=== PATIENT | female | born 1965 | race Caucasian/White ===

== ENCOUNTER 2018-11-24 07:51 | Emergency (ER) | payer BC ==
[2018-11-24 08:44] LABS: ABS Basophils 0.1 10^3/ul (0-0.2); ABS Eosinophils 0.1 10^3/ul (0-0.6); ABS Lymphocytes 1.9 10^3/ul (1.0-4.8); ABS Monocytes 0.6 10^3/ul (0-0.8); Eosinophil % 1.1 %; Hematocrit 39 % (35-47); Hemoglobin 13.6 g/dL (12.0-16.0); Lymphocyte % 19.7 %; Mean Corpuscular HGB Conc 35 g/dL (31-36); Mean Corpuscular Hemoglobin 31 pg (27-31); Mean Corpuscular Volume 90 fL (80-97); Mean Platelet Volume 7.6 fL (7.4-10.4); Nucleated Red Blood Cells % 0.1; Platelet Count 333 10^3/uL (150-450); Red Blood Count 4.37 10^6 /uL (3.70-4.87); Red Cell Distribution Width 13 % (10-15); White Blood Count 9.7 10^3/uL (3.5-10.8)
[2018-11-24] MEDS ORDERED: NS 0.9% 1000 ML** 1,000 ML IV SCH (08:45)
--- NOTE | 2018-11-24 08:53 | ED ---
Abdominal Pain/Female - HPI Summary HPI Summary: The patient is a 53 y/o F presenting to [facility] with a chief complaint of sudden onset RUQ pain that radiates into the right flank and back starting last night and persisting through now. She reports that she had spicy food last night, so she took Omeprazole that she is prescribed for dx of GERD; she states that her reflux symptoms are usually well-managed, but the pain was not alleviated throughout the night as she felt uncomfortable and had difficulty sleeping secondary to the pain. Upon waking up this morning, the pain was still present, but she tried to be active to see if the pain would decrease. She also reports that she had a normal BM this morning without diarrhea without relief of the pain. The sharp and constant pain is still currently rated 8/10 in severity. She denies nausea, vomiting, and right shoulder pain. She has no previous experience with this pain. Surgical hx of appendectomy, hysterectomy, four sections. No cholecystectomy. Nonsmoker, rare EtOH, no substance use. - History of Current Complaint Chief Complaint: EDAbdPain Stated Complaint: UPPER GASTRIC PAIN PER PT Time Seen by Provider: 11/24/18 08:25 Hx Obtained From: Patient Onset/Duration: Sudden Onset, Lasting Hours - since last night, Still Present Severity Initially: Moderate Severity Currently: Moderate Pain Intensity: 8 Pain Scale Used: 0-10 Numeric Location: Discrete At: RUQ Radiates: Yes Radiates to: Back - right, Flank - right Character: Sharp Aggravating Factor(s): Food - spicy food Alleviating Factor(s): Nothing - Omeprazole and BM to no relief Associated Signs and Symptoms: Positive: Other: - NEGATIVE: right shoulder pain. Negative: Nausea, Vomiting Allergies/Adverse Reactions: Allergies Allergy/AdvReac Type Severity Reaction Status Date / Time No Known Allergies Allergy Verified 11/24/18 07:57 PMH/Surg Hx/FS Hx/Imm Hx Endocrine/Hematology History: Denies: Hx Diabetes Cardiovascular History: Denies: Hx Hypertension, Hx Pacemaker/ICD GI History: Reports: Hx Gastroesophageal Reflux Disease History: Denies: Hx Dialysis, Hx Renal Disease Musculoskeletal History: Reports: Hx Back Problems - Neck and lower spine pain, Other Musculoskeletal History - Neck and lower spine pain Sensory History: Denies: Hx Contacts or Glasses, Hx Hearing Aid Opthamlomology History: Denies: Hx Contacts or Glasses Psychiatric History: Denies: Hx Panic Disorder - Cancer History Hx Chemotherapy: No Hx Radiation Therapy: No - Surgical History Surgery Procedure, Year, and Place: 4 . [address] Weir in [place]. Appendectomy Hx Anesthesia Reactions: No Infectious Disease History: No Infectious Disease History: Denies: Traveled Outside the [place] in Last 30 Days - Family History Known Family History: Negative: Hypertension, Diabetes - Social History Alcohol Use: Rare Alcohol Amount: Every two months Hx Substance Use: No Substance Use Type: Reports: None Hx Tobacco Use: No Smoking Status (MU): Never Smoked Tobacco Do You Chew or Dip Tobacco: No Have You Chewed or Dipped Tobacco in the LAST YEAR: No Have You Smoked in the Last Year: No Review of Systems Positive: Abdominal Pain - RUQ pain radiating to right flank and back. Negative : Vomiting, Diarrhea - nml BM this morning, Nausea Positive: Other - NEGATIVE: shoulder pain All Other Systems Reviewed And Are Negative: Yes Physical Exam - Summary Physical Exam Summary: VITAL SIGNS: Reviewed. GENERAL: Patient is a well-developed and nourished female who is lying comfortable in the stretcher. Patient is not in any acute respiratory distress. HEAD AND FACE: Normocephalic and atraumatic. EYES: PERRLA, EOMI x 2, No injected conjunctiva. EARS: Hearing grossly intact. Ear canals and tympanic membranes are WNL. MOUTH: Oropharynx within normal limits. NECK: Supple, trachea is midline, no adenopathy, no JVD. CHEST: Symmetric, no tenderness at palpation LUNGS: Clear to auscultation bilaterally. No wheezing or crackles. CVS: RRR, S1 and S2 present, no murmurs or gallops appreciated. ABDOMEN: Soft, RUQ tenderness. No signs of distention. Positive bowel sounds. No rebound no guarding, and no masses palpated. No abdominal bruit or pulsations. EXTREMITIES: FROM in all major joints, no edema, no cyanosis or clubbing. NEURO: Alert and oriented x 3. No acute neurological deficits. Speech is normal. SKIN: Dry and warm. Triage Information Reviewed: Yes Vital Signs On Initial Exam: Initial Vitals Temp Pulse Resp BP Pulse Ox 98.1 F 97 16 160/88 98 11/24/18 07:53 11/24/18 07:53 11/24/18 07:53 11/24/18 07:53 11/24/18 07:53 Vital Signs Reviewed: Yes Diagnostics - Vital Signs Vital Signs Temp Pulse Resp BP Pulse Ox 11/24/18 07:53 98.1 F 97 16 160/88 98 - Laboratory Result Diagrams: 11/24/18 08:35 11/24/18 08:35 Lab Statement: Any lab studies that have been ordered have been reviewed, and results considered in the medical decision making process. - Ultrasound No standard instances Ultrasound Interpretation Completed By: Radiologist Summary of Ultrasound Findings: Gallbladder US: 1. Cholelithiasis. There is no gallbladder wall thickening or pericholecystic fluid. There is a positive sonographic menjivar sign. The sonographic features are indeterminate for acute cholecystitis. 2. Hepatomegaly. ED physician has reviewed this radiology report. - EKG 0837 Cardiac Rate: NL - 70 BPM EKG Rhythm: Sinus Rhythm Summary of EKG Findings: No ST elevations. Re-Evaluation - Re-Evaluation First Eval Re-Evaluation Time: 11:45 Change: Unchanged Comment: The patient states that she would like pain medications now; if the pain decreases, she will be discharged home. Second Eval Re-Evaluation Time: 12:50 Change: Improved Comment: The patient states she is feeling much better and would like to go home. We discussed discharge home and follow up with Dr. Woods. Abdominal Pain Fem Course/Dx - Course Course Of Treatment: The patient is a 53 y/o F presenting to [facility] with a chief complaint of sudden onset RUQ pain that radiates into the right flank and back starting last night and persisting through now. She reports that she had spicy food last night, so she took Omeprazole that she is prescribed for dx of GERD; she states that her reflux symptoms are usually well-managed, but the pain was not alleviated throughout the night as she felt uncomfortable and had difficulty sleeping secondary to the pain. Upon waking up this morning, the pain was still present, but she tried to be active to see if the pain would decrease. She also reports that she had a normal BM this morning without diarrhea without relief of the pain. The sharp and constant pain is still currently rated 8/10 in severity. She denies nausea, vomiting, and right shoulder pain. She has no previous experience with this pain. Surgical hx of appendectomy, hysterectomy, four sections. No cholecystectomy. Nonsmoker, rare EtOH, no substance use. Blood work without any significant abnormality except for glucose of 119. Urinalysis with 2+ blood and presence of squamous epithelial cells. RUQ U/S IMPRESSION: 1. CHOLELITHIASIS. THERE IS NO GALLBLADDER WALL THICKENING OR PERICHOLECYSTIC FLUID. THERE IS A POSITIVE SONOGRAPHIC MENJIVAR SIGN. THE SONOGRAPHIC FEATURES ARE INDETERMINATE FOR ACUTE CHOLECYSTITIS. 2. HEPATOMEGALY. Patient was given IV fluids. She initially declined any pain medications. I discussed my physical exam and findings with Dr. Woosd from surgery, and he will come to consult for this patient. After the patient was assessed by Dr. Woods, he recommends pain medications. If the pain medications alleviate the pain, the patient can be discharged home and he will schedule her for a cholecystectomy on Monday. Patient was given Toradol and Morphine, and the symptoms resolved. At this time, the patient will be discharged home with follow-up with Dr. Woods on Monday. The patient was given [place] for pain. She understands and agrees with the plan. - Diagnoses Provider Diagnoses: Cholelithiasis - Provider Notifications Discussed Care Of Patient With: Stanley Woods - surgery Time Discussed With Above Provider: 10:55 Instructed by Provider To: Other - I discussed the patient's case with Dr. Woods, and he will come see the patient in the ED for a consultation. I spoke with Dr. Woods again at 1255 since the patient is feeling better, and he agrees with discharge home. He will follow up with the patient tomorrow to schedule surgery in two days. He also requests that the patient be given a prescription for pain medications and Augmentin. Discharge - Sign-Out/Discharge Documenting (check all that apply): Patient Departure - Patient will be discharged home. Patient Received Moderate/Deep Sedation with Procedure: No - Discharge Plan Condition: Stable Disposition: HOME Prescriptions: Amoxicillin/Clavulanate TAB* [Augmentin TAB 875*] 875 mg PO BID #20 tab HYDROcodone/ACETAMIN 5-325 MG* [Irvine 5-325 TAB*] 1 tab PO Q8H PRN #12 tab MDD 4 PRN Reason: Pain Patient Education Materials: Gallstones (ED) Referrals: Mario Alberto Lopez MD [Primary Care Provider] - Stanley Woods MD [Medical Doctor] - 3 Days Additional Instructions: Please take medications as provided. Dr. Woods from surgery will call you tomorrow for surgery on Monday, November 26. RETURN TO THE EMERGENCY DEPARTMENT FOR ANY NEW OR WORSENING SYMPTOMS. - Billing Disposition and Condition Condition: STABLE Disposition: Home - Attestation Statements Document Initiated by Lilli: Yes Documenting Scribe: Mamta Mclain Provider For Whom Lilli is Documenting (Include Credential): Dr. Eric Toribio MD Scribe Attestation: I, Mamta Mclain, scribed for Dr. Eric Toribio MD on 11/25/18 at 1751. Scribe Documentation Reviewed: Yes Provider Attestation: The documentation as recorded by the Mamta leone accurately reflects the service I personally performed and the decisions made by me, Dr. Eric Toribio MD Status of Scribe Document: Viewed
[2018-11-24 09:06] LABS: Albumin 4.4 g/dL (3.2-5.2); Albumin/Globulin Ratio 1.5 (1-3); BUN/Creatinine Ratio 16.9 (8-20); C Reactive Protein 1.75 mg/L (<8.01); Calcium 9.4 mg/dL (8.6-10.3); EGFR African American 80.6 (>60); EGFR Non-African American 66.6 (>60); Magnesium 2.1 mg/dL (1.9-2.7); Potassium 4.6 mmol/L (3.5-5.0); Total Bilirubin 0.6 mg/dL (0.2-1.0); Total Protein 7.4 g/dL (6.4-8.9)
[2018-11-24 09:18] LABS: Urine Appearance Clear; Urine Bacteria Absent (Absent); Urine Bilirubin Negative (Negative); Urine Blood 2+ (Negative); Urine Color Straw; Urine Glucose Negative (Negative); Urine Ketones Negative (Negative); Urine Nitrite Negative (Negative); Urine Protein Negative (Negative); Urine Red Blood Cell Trace(0-2/hpf) (Absent); Urine Specific Gravity 1.008 (1.010-1.030); Urine Squamous Epithelial Cell Present (Absent); Urine Urobilinogen Negative (Negative); Urine White Blood Cell Trace(0-5/hpf) (Absent)
[2018-11-24] MEDS ORDERED: Morphine 10 MG/ML VIAL (1 ml) IV ONE (11:49)
[2018-11-24] MEDS ORDERED: Ketorolac INJ* 30 MG/ML 1 ML VIAL IV PUSH ONE (11:49)
[2018-11-24] MEDS ORDERED: Ondansetron INJ* 2 MG/ML VIAL IV ONE (11:49)
[2018-11-24 13:13] VITALS: BP 114/71
--- NOTE | 2018-11-25 10:40 | CONS ---
CC: [facility]; Dr. Mario Alberto Lopez, [facility] * CONSULTATION REPORT: DATE OF CONSULT: 11/24/18 REASON FOR CONSULT: Epigastric and right upper quadrant abdominal pain. HISTORY OF PRESENT ILLNESS: Ms. Melva Castro is a healthy 53-year-old woman who presented to the emergency room with 8 to 12 hours of epigastric and right upper quadrant abdominal pain that radiated to her back. This started rather suddenly last night and she was unable to get comfortable. She had some mild nausea without vomiting. She was noted to have jaundice and had no fevers, shakes, or chills. She had no lower abdominal discomfort. There was no associated diarrhea or left - sided abdominal pain. She took her proton pump inhibitor that she usually takes for reflux intermittently and that did not improve her symptoms. When the pain did not светлана, she presented to the emergency room earlier this morning. In the emergency room, she was noted to be afebrile with normal vital signs. She had some mild tenderness in the right upper quadrant. Laboratory values included a white blood cell count of 9.7 with a normal hemoglobin and platelet count. Electrolytes, BUN, and creatinine were within normal limits. She had a lactic acid of 0.8. Liver panel was unremarkable including a normal lipase and C-reactive protein. A cardiac evaluation was unremarkable. She underwent an ultrasound of her gallbladder. I did review these images. This shows cholelithiasis with a 2.7 cm gallstone noted in the neck of the gallbladder. There was no gallbladder wall thickening or pericholecystic fluid. There was no intrahepatic biliary dilation and the common bile duct was not well visualized. She had refused pain medication initially and surgical consultation had been obtained for discussion regarding cholelithiasis as a cause of her discomfort. PAST MEDICAL HISTORY: Gastroesophageal reflux disease. PAST SURGICAL HISTORY: 1. Laparoscopic appendectomy. 2. section x4. 3. Open hysterectomy. MEDICATIONS: Include Prilosec p.r.n. ALLERGIES: She had no known drug allergies. SOCIAL HISTORY: She is and has 4 children. She is a [id number] mom. She does not use tobacco. She uses alcohol on a very rare social basis. She denies use of illicit drugs. REVIEW OF SYSTEMS: Cerebrovascular: No dizziness or visual disturbances. Cardiovascular: No chest pain or shortness of breath. Pulmonary: No wheezing or hemoptysis. GI: As per above. She has had gallstones since 2016 [address] she underwent a CT scan of her abdomen and pelvis for her acute appendicitis. Gallstone may be slightly larger on the ultrasound as compared to the CAT scan from that time. She said she may have some intermittent mild epigastric pain at times, but has never sought care. That may be attributed to the gallstone. : No urgency or hematuria. She is status post hysterectomy. Psychiatric: She has no history. PHYSICAL EXAMINATION: Temperature was 98.1, pulse 65, blood pressure 114/71. In general, she is a well-developed, well-nourished female who appears to be in no apparent distress. HEENT: Her sclerae was anicteric. Oral mucosa was slightly dry. Her lungs were clear to auscultation with normal respiratory effort. Heart with regular rate and rhythm without murmurs, rubs, or gallops. Her abdomen is soft, nondistended. She has a well-healed low transverse incision without hernia. There are several laparoscopic incisions around the umbilicus without hernia. She has some mild tenderness in the epigastric and right upper quadrant, but no mass, rebound, or peritoneal irritation. There is no right flank discomfort. Psychiatric: She is awake, alert and oriented x3. She has normal judgment and insight. IMPRESSION: Epigastric and right upper quadrant abdominal pain radiating through to the back. This was of sudden onset last night after eating a larger meal. She has known gallstones and an ultrasound done today shows a rather large gallstone at the neck of the gallbladder without findings consistent with acute cholecystitis, however. Laboratory workup was essentially unremarkable. I discussed the findings with the patient and her . I feel that her pain has been persistent now for 12 hours and although she has not received any pain medicine here in the emergency room, I suspect and recommend that she will require a cholecystectomy as a rather large stone in this location is mostly going to cause persistent symptoms despite symptomatic management. I also feel that she is more likely to develop acute calculus cholecystitis with this finding. After our discussion and also due to the fact that she has a planned family trip to [facility] in about 10 days, I would recommend that we proceed with a laparoscopic cholecystectomy in the next several days for treatment as well as to give her some time to recover prior to surgery. We discussed options of admission today with surgery on Monday or the fact that with normal white blood cell count, no signs of acute calculus cholecystitis, she could be discharged home with some analgesia and return on Monday for an outpatient laparoscopic cholecystectomy. She subsequently was given pain medicine in the emergency room and her pain resolved. Plan now is for her to be discharged home and schedule as an outpatient for a laparoscopic cholecystectomy for Monday and this has been arranged through our surgical fire coordinator, Azucena Blanton. Preoperative instructions were given. She will be given prescription for analgesia as well. In addition, she will be n.p.o. after midnight. I also instructed her to present back to the emergency room if she develops fever, shaking chills, severe abdominal pain, jaundice, or have other questions or concerns. PLAN: Discharge home from the emergency room with scheduled laparoscopic cholecystectomy as an outpatient on 11/26/18. [id number]/CPS #: [id number] YONG
== END 2018-11-24 13:20 | disposition home or self-care (01) ==
LOC: ED 07:51
DX: K80.20 Calculus of gallbladder without cholecystitis without obstruction (principal); R16.0 Hepatomegaly, not elsewhere classified; K21.9 Gastro-esophageal reflux disease without esophagitis; Z90.710 Acquired absence of both cervix and uterus; Z90.89 Acquired absence of other organs
CPT/HCPCS: 36415; 76705; 80053; 81003; 81015; 83605; 83690; 83735; 85025; 86140; 87086; 93005; 96374; 99283; J1885; J2270; J2405

== ENCOUNTER 2018-11-26 10:11 | Day surgery (SDC) | payer BC ==
[~2018-11-26 10:11] MED LIST: Buffered Lidocaine 1% SYRIN* 1 ML/SYRINGE INTRADERM ONE; Dexamethasone TAB* 4 MG PO ONE; DiMENhydriNATE IV* 50 MG/ML VIAL IV PUSH PRN; Famotidine IV* 10 MG/ML 2 ML (20 mg) IV ONE; Lactated Ringers 1000 ML Bag* 1,000 ML IV SCH; Morphine 4 MG/ML VIAL (1 ml) 4 MG/ML VIAL IV PRN; Naloxone* 0.4 MG/ML 1 ML VIAL IV PRN; Ondansetron INJ* 2 MG/ML VIAL ONE; PROCHLORPERAZINE INJ 5 MG/ML 2 ML VIAL IV PRN; Scopolamine 1.5 mg* PATCH TRANSDERM PRN; fentaNYL* 50 MCG/ML 2 ML VIAL (100 MCG VIAL) IV PRN; oxyCODONE/Acetamin 5/325 MG* TAB PO PRN
[2018-11-26] MEDS ORDERED: Famotidine IV* 10 MG/ML 2 ML (20 mg) ONE (10:31)
[2018-11-26] MEDS ORDERED: Ondansetron INJ* 2 MG/ML VIAL ONE (10:31)
[2018-11-26] MEDS ORDERED: Dexamethasone TAB* 4 MG ONE (10:31)
[2018-11-26] MEDS ORDERED: fentaNYL* 50 MCG/ML 2 ML VIAL (100 MCG VIAL) ONE ×2 (10:59→12:47)
[2018-11-26] MEDS ORDERED: Atracurium* 10 MG/ML 10 ML VIAL ONE (10:59)
[2018-11-26] MEDS ORDERED: Lidocaine 2% PF * 5 ML VIAL ONE (10:59)
[2018-11-26] MEDS ORDERED: Midazolam* 1 MG/ML 5 ML VIAL (5 MG) ONE (10:59)
[2018-11-26] MEDS ORDERED: Propofol* 10 MG/ML 20 ML BTL ONE (10:59)
[2018-11-26] MEDS ORDERED: KETAMINE HCL* 50 MG/ML 10 ML VIAL ONE (10:59)
[2018-11-26] MEDS ORDERED: Bupivacaine 0.5%* 50 ML VIAL ONE (11:15)
[2018-11-26] MEDS ORDERED: Buffered Lidocaine 1% SYRIN* 1 ML/SYRINGE INTRADERM ONE (11:21)
[2018-11-26] MEDS ORDERED: Neostigmine Methylsulfate* 1 MG/ML 10 ML VIAL (1 mg/ml) ONE (12:26)
[2018-11-26] MEDS ORDERED: Glycopyrrolate IV* 0.2 MG/ML 1 ML VIAL ONE (12:26)
[2018-11-26] MEDS ORDERED: Ketorolac INJ* 30 MG/ML 1 ML VIAL ONE (12:26)
[2018-11-26] MEDS ORDERED: PROCHLORPERAZINE INJ 5 MG/ML 2 ML VIAL ONE (12:26)
[2018-11-26] MEDS ORDERED: DiMENhydriNATE IV* 50 MG/ML VIAL ONE (12:47)
[2018-11-26 14:49] VITALS: BP 149/87
[2018-11-26] MEDS ORDERED: Acetaminophen TAB* 325 MG ONE (15:03)
[2018-11-29] MEDS ORDERED: Scopolamine PATCH Remove* 1 NOTE MISC PATCH OFF ONE (08:12)
== END 2018-11-26 15:27 | disposition home or self-care (01) ==
LOC: OR 10:11
PROVIDERS: ATTEND Surgery
DX: K80.20 Calculus of gallbladder without cholecystitis without obstruction (principal); K21.9 Gastro-esophageal reflux disease without esophagitis
CPT/HCPCS: 88304; A9270-GY; J0780; J1240; J1885; J2250; J2405; J2704; J2710; J3010; J3490; J8540